=== PATIENT | female | born 1990 | race African-American/Black ===

== ENCOUNTER 2017-05-09 18:41 | Emergency (ER) | payer MEDICAID ==
[~2017-05-09] VITALS: Ht 172.7 cm; Wt 95.0 kg
[2017-05-09 19:34] VITALS: BP 104/56
== END 2017-05-10 01:45 | disposition left against medical advice (07) ==
LOC: ER 18:41
DX: Z04.8 Encounter for examination and observation for other specified reasons (principal); Z53.21 Procedure and treatment not carried out due to patient leaving prior to being seen by health care provider